=== PATIENT | female | born 1975 | race Caucasian/White ===

== ENCOUNTER 2019-11-09 13:17 | Emergency (ER) | payer SELFPAY ==
[2019-11-09 14:10] VITALS: TEMP 97.6; O2SAT 99
--- NOTE | 2019-11-09 15:34 | ED.PDOC ---
History of Present Illness - General Chief Complaint: Skin/Abrasion/Tear Stated Complaint: abscess Time Seen by Provider: 11/09/19 15:32 Source: patient - History of Present Illness Initial Comments: 44 yo female who presents with cc of painful lesion on left buttocks. Onset 6 days ago, gradual worsening, now reports sharp, constant, 7/10 severity, no radiation, worse with palpation, has been doing warm compresses & bathes with little relief. Did start draining some blood & pus today. No fevers, chills, or other sx's. Allergies/Adverse Reactions: Allergies NO KNOWN ALLERGY Allergy (Verified 11/09/19 14:11) Home Medications: Ambulatory Orders Doxycycline Hyclate 100 mg PO BID 7 Days #14 tab 11/09/19 Review of Systems - Review of Systems Review of Systems: 11/09/19 15:33 as per HPI All other Systems: Reviewed and Negative Past Medical History (General) - Patient Medical History Hx Asthma: Yes - Vaccination History Hx Influenza Vaccination: No Hx Pneumococcal Vaccination: No - Social History Hx Tobacco Use: Yes Hx Alcohol Use: Yes - socially Hx Substance Use: No Hx Substance Use Treatment: No - Female History Patient is a Female of Child Bearing Age (10 -59 yrs old): Yes - Triage Comment ED Triage Comment: HX of tubal Family Medical History - Family History Mother Family History: No Known Physical Exam - Physical Exam General Appearance: Alert, Comfortable, No apparent distress Eye Exam: bilateral normal Ears, Nose, Throat: hearing grossly normal, normal ENT inspection Neck: non-tender, full range of motion, supple, normal inspection Respiratory: lungs clear, normal breath sounds Cardiovascular/Chest: normal peripheral pulses, regular rate, rhythm, no murmur Gastrointestinal/Abdominal: non tender, soft Back Exam: normal inspection Extremity: normal range of motion, non-tender, normal inspection Neurologic: no motor/sensory deficits, alert, normal mood/affect, oriented x 3 Skin Exam: normal color, other - approx 3x3 cm abscess to left buttocks region with pointing and spontaneous drainage of blood/pus mixture, moderately ttp and warm Progress - Progress Progress: 11/09/19 15:35 Left buttocks skin abscess -spontaneous drainage noted - able to express approx 2-3 cc of bloody purulent fluid and sent for cx's -will place on doxy 100 BID x7 days -continued home trx and return warnings discussed -dc home in good condition Andrew Preciado MD Billing #[id number] Departure - Departure Clinical Impression: Skin abscess Qualifiers: Site of cutaneous abscess: buttock Qualified Code(s): L02.31 - Cutaneous absc ess of buttock Time of Disposition: 15:36 Disposition: Discharge to Home or Self Care Condition: Good Departure Forms: ED Discharge - Pt. Copy, Patient Portal Self Enrollment Instructions: Boil (DC) Diet: resume usual diet Prescriptions: Doxycycline Hyclate 100 mg PO BID 7 Days #14 tab Home Medications: Ambulatory Orders Doxycycline Hyclate 100 mg PO BID 7 Days #14 tab 11/09/19
[2019-11-09] MEDS ORDERED: NEOMYCIN-BACITRACIN-POLYMYXIN 0.9 GM UD TOP ONE (15:48)
[2019-11-09 15:59] VITALS: BP 112/71
== END 2019-11-09 16:01 | disposition home or self-care (01) ==
LOC: ER 13:17
DX: L02.31 Cutaneous abscess of buttock (principal); J45.909 Unspecified asthma, uncomplicated; Z87.891 Personal history of nicotine dependence

== ENCOUNTER → 2020-04-21 | Outpatient (CLI) | payer OTHER ==
--- NOTE | 2020-04-21 19:57 | RAD ---
EXAM DESCRIPTION: Scapula,Left: CR/DR/XR. CLINICAL HISTORY: 44 years Female, SCAPULALGIA COMPARISON: None. TECHNIQUE: 2 views AP and transthoracic views left scapula. FINDINGS: No dislocation or fracture. No abnormal soft tissues. No abnormal radiodense objects in the soft tissues. Glenohumeral joint and AC joints are intact. IMPRESSION: No acute bony abnormality of the left scapula. If dysfunction of the scapula is suspected clinically, consider follow-up CT scan or MRI scan. Electronically signed by: Shaun Irby MD 04/21/2020 7:56 PM CDT
== END ==
LOC: RAD 14:51
PROVIDERS: ATTEND Nurse Practitioner Family
DX: M25.512 Pain in left shoulder (principal)